=== PATIENT | female | born 2000 | race Two or more races ===

== ENCOUNTER 2025-07-14 17:52 | Emergency (ER) | payer MEDICAID, SELFPAY ==
[2025-07-14 17:53] VITALS: BMI 21.9
[2025-07-14 18:52] VITALS: BP 104/68; PULSE 114; RESP 20; TEMP 37.6; O2SAT 99
--- NOTE | 2025-07-14 19:05 | EDNOTE_ITS ---
Nausea/Vomit./Diarrhea-RME/HPI General Chief complaint: Nausea/Vomiting/Diarrhea Stated complaint: VOMITING x 2 DAYS AND + PREG Time Seen by Provider: 07/14/25 18:22 Arrival date/time: 07/14/25 17:52 25-year-old female 10 weeks gestation reports with complaints of persistent nausea and vomiting. Patient states she is unable to keep any foods down she has tried drinking sodas like lisa katie and eating crackers however she is unable to hold those things down. She denies any vaginal bleeding shortness of breath fevers chills diarrhea constipation blood or mucus in stools. Limitations: no limitations Related Data Home Medications ?Medication ?Instructions ?Recorded ?Confirmed vitamn-iron carb-folic cap PO 02/03/23 acid-docusate 95 mg-1 mg-50 mg capsule Previous Rx's ?Medication ?Instructions ?Recorded metoclopramide HCl 10 mg tablet 10 mg PO BID #20 tabs 07/14/25 (Reglan) Allergies Allergy/AdvReac Type Severity Reaction Status Date / Time No Known Allergies Allergy Verified 07/14/25 17:56 Review of Systems Constitutional Constitutional: Denies chills and Denies fever(s) ENT Ears, Nose, Mouth, and Throat: Denies dizziness, Denies otalgia and Denies sore throat Cardiovascular Cardiovascular: Denies chest pain, Denies dyspnea and Denies syncope Respiratory Respiratory: Denies cough and Denies dyspnea Gastrointestinal Gastrointestinal: Denies abdominal pain, Reports nausea and Reports vomiting Genitourinary Genitourinary: Denies abnormal vaginal bleeding, Denies difficulty voiding and Denies dysuria Musculoskeletal Musculoskeletal: Denies arthralgias and Denies back pain Integumentary/Breasts Skin/Breast: Denies erythema and Denies rash Neurologic Neurologic: Denies dizziness and Denies syncope Psychiatric Psychiatric: Denies anxiety and Denies depression Past Medical History Social History SMOKING STATUS: Never smoker ED Exam General Limitations: Present no limitations General appearance: Present alert and in no apparent distress Head Head exam: Present atraumatic Eye Eye exam: Present normal appearance, PERRL and EOMI ENT ENT exam: Present normal exam, normal oropharynx and mucous membranes moist Neck Neck exam: Present normal inspection, full ROM and trachea midline Chest Chest inspection: Present normal inspection and symmetric chest wall rise Respiratory Respiratory exam: Present normal lung sounds bilaterally Cardiovascular Cardiovascular exam: Present regular rate, normal rhythm and normal heart sounds Abdominal Exam Abdominal exam: Present soft and normal bowel sounds Extremities Exam Extremities exam: Present normal inspection and full ROM Back Exam Back exam: Present normal inspection and full ROM Neurological Exam Neurological exam: Present alert, oriented X3 and CN II-XII intact Psychiatric Psychiatric exam: Present normal affect and normal mood Skin Skin exam: Present warm, dry, intact and normal color Course Course Course Narrative: 25-year-old female 10 weeks gestation reports with complaints of nausea vomiting. Patient is given some Phenergan she is also given some medications to take home she is stable nontoxic-appearing with stable vital signs no vaginal bleeding no other symptoms she is advised follow-up with [employer] Quality Measures none Orders Category Date Time Status Promethazine Inj [Phenergan Inj] Med 07/14/25 19:04 Once 12.5 mg IM X1 ONE Vital Signs Vital signs: Vital Signs Temperature 99.6 F 07/14/25 18:52 Pulse Rate 114 H 07/14/25 18:52 Respiratory Rate 20 07/14/25 18:52 Blood Pressure 104/68 07/14/25 18:52 Pulse Oximetry (%) 99 07/14/25 18:52 Oxygen Delivery Method Room Air 07/14/25 18:52 Nausea/Vomiting/Diarrhea Patient data External records reviewed:: None Clinical information provided by:: patient Social determinants that could affect healthcare access:: none Patient has the following chronic illnesses:: none How is presenting disease/condition affected by chronic disease/condition?: no chronic disease Evaluation data The following diagnostics were reviewed and interpreted by me:: other (specify) (none) Lab and/or radiology exams considered but not ordered:: none Interpretation Summary: n/a Medications / Prescriptions Medications / Prescriptions considered but not ordered:: none Medication administrations:: Phenergan 12.5 mg IM Consultations Consultation(s) initiated? (list below): No Diagnosis Nausea Differential Diagnosis: food poisoning, gastroenteritis, dehydration and other (Vomiting in ) Most likely diagnosis given after review of the tests above:: Vomiting in Admission Indicated Admission indicated?: not indicated Admission Request Was there a request for admission?: No Disposition Plan Disposition Plan: Discharge Discharge Attestation Discharge Attestation: The patient and all family members were given an opportunity to ask questions and understood the discharge instructions. Discharge instructions specifically effects, indications for sooner follow up or return to the emergency department, and the expected course of current diagnosis. Patient condition: Stable Discharge Plan Plan Patient Disposition: HOME (Self Care) Prescriptions/Referrals Prescriptions/Med Rec: New metoclopramide HCl [Reglan] 10 mg tablet 10 mg PO BID Qty: 20 0RF No Action Prena-Cap 95-1-50 mg Capsule PO Problem List Clinical Impression: Excessive vomiting during Patient/Caregiver Discharge Instructions Discharge Activity: activity as tolerated Education Materials: ED Vomiting (Adult) Additional Instructions: Use medication as directed hydrate well follow with your [employer]Y DIRECTOR in 24 to 48 hours. Return to the emergency room if symptoms should worsen Print Language: Uzbek Stand Alone Forms: [employer] Award Info., Patient Portal Info Letter
[2025-07-14] MEDS: METOCLOPRAMIDE INJ 5 MG/ML VIAL 2 ML 10 MG IM (19:33)
== END 2025-07-14 20:55 | disposition home or self-care (01) ==
LOC: SERX 20:06
PROVIDERS: Emergency Provider Physician Assistant
DX: O21.9 Vomiting of pregnancy, unspecified (principal); Z3A.10 10 weeks gestation of pregnancy
CPT/HCPCS: 96372; 99282; J2765

== ENCOUNTER 2025-07-16 10:02 | Emergency (ER) | payer MEDICAID, SELFPAY ==
[2025-07-16 10:03] VITALS: BMI 29.4
[2025-07-16 10:12] VITALS: BP 123/81; PULSE 122; RESP 19; TEMP 37.6; O2SAT 97
--- NOTE | 2025-07-16 10:20 | EDNOTE_ITS ---
Nausea/Vomit./Diarrhea-RME/HPI General Chief complaint: Nausea/Vomiting/Diarrhea Stated complaint: N/V X4 DAYS; 10 WEEKS OB Time Seen by Provider: 07/16/25 10:20 Arrival date/time: 07/16/25 10:02 RME / HPI RME / HPI Narrative: See [facility] for Dr. Umanzor's HPI documentation. Related Data Home Medications ?Medication ?Instructions ?Recorded ?Confirmed vitamn-iron carb-folic cap PO 02/03/23 acid-docusate 95 mg-1 mg-50 mg capsule Previous Rx's ?Medication ?Instructions ?Recorded metoclopramide HCl 10 mg tablet 10 mg PO BID #20 tabs 07/14/25 (Reglan) cefdinir 300 mg capsule 300 mg PO BID #14 caps 07/16 ondansetron 4 mg disintegrating 4 mg PO TID PRN nausea and 07/16/25 tablet vomiting 30 days #30 tabs Allergies Allergy/AdvReac Type Severity Reaction Status Date / Time No Known Allergies Allergy Verified 07/16/25 10:06 Review of Systems Review of Systems Systems Reviewed: All systems reviewed, normal except as documented Past Medical History Social History SMOKING STATUS: Never smoker ED Exam Narrative Physical exam: See [facility] for Dr. Umanzor's physical exam documentation. Course Quality Measures none Orders Category Date Time Status Bedside COVID-19 Antigen Test NOW Care 07/16/25 10:26 Completed Saline [Insert IV] NOW Care 07/16/25 10:24 Completed Straight [In and Out Catheter] X1 Care 07/16/25 10:26 Completed US OB <= 14 weeks fetus Stat Exams 07/16/25 10:26 Completed US gall bladder Stat Exams 07/16/25 10:26 Completed ABG [Arterial Blood Gas] Stat Lab 07/16/25 10:37 Completed Amylase Stat Lab 07/16/25 11:03 Completed Beta HCG,Quantitative Stat Lab 07/16/25 11:03 Completed Beta Hydroxybutyrate Stat Lab 07/16/25 11:03 Completed Bilirubin,Direct Stat Lab 07/16/25 11:03 Completed CBC Stat Lab 07/16/25 11:03 Completed CMP [Comprehensive Metabolic Panel] Stat Lab 07/16/25 11:03 Completed Drug Screen,Urine Stat Lab 07/16/25 11:00 Completed Influenza A & B Rapid Panel Stat Lab 07/16/25 14:34 Completed Lipase Stat Lab 07/16/25 11:03 Completed Magnesium Stat Lab 07/16/25 11:03 Completed Rh Testing Only Stat Lab 07/16/25 11:03 Completed UA, C/S IF [Urinalysis, C/S if Indicated] Stat Lab 07/16/25 11:00 Completed Urine Culture Stat Lab 07/16/25 11:00 Received Ondansetron Inj [Zofran Inj] Med 07/16/25 10:24 Discontinued 4 mg IVP X1 ONE POTASSIUM CHL 10% Liq 15 ML Med 07/16/25 11:59 Discontinued 40 meq PO X1 ONE Ringers Lactated 1000 ml [Lactated Ringers] 1,000 ml Med 07/16/25 11:59 Discontinued IV 1,000 mls/hr Sodium Chloride 0.9% 1000 ml [Ns] 1,000 ml Med 07/16/25 10:24 Discontinued IV 999 mls/hr Vital Signs Vital signs: Vital Signs Temperature 99.7 F 07/16/25 10:12 Pulse Rate 122 H 07/16/25 10:12 Respiratory Rate 19 07/16/25 10:12 Blood Pressure 123/81 07/16/25 10:12 Pulse Oximetry (%) 97 07/16/25 10:12 Oxygen Delivery Method Room Air 07/16/25 10:12 Pulse ox is 97% on room air which is adequate. Nausea/Vomiting/Diarrhea MDM Narrative MDM Narrative:: This section includes all my notes and documentations, including HPI, PE, and ED course. Sea Umanzor MD HPI: 25-year-old ~10 week female here with several days of intractable vomiting and diarrhea. No vaginal spotting or bleeding. No other complaints. ROS: All negative except as documented in HPI. Physical Exam: General: Alert and oriented. Appearance of severe malaise noted. Eyes: Conjunctivae and lids clear. ENT: No nasal congestion. Neck: Supple. Heart: Tachycardic regular rhythm. Lungs: No respiratory distress. Good air movement. No rhonchi, wheezing, rales. Abdomen: Soft and nontender. Normal bowel sounds. No distension. No rebound or guarding. Back: No CVA tenderness. Skin: Warm and dry. Neuro: Alert and oriented X 3. I reviewed all diagnostic test results: My review of the gallbladder ultrasound report is: No acute findings. My review of the ultrasound report is 9 3/7-week IUP. Blood tests and urine tests remarkable for UTI. Covid/influenza is negative. At this point, diagnoses include: Hyperemesis gravidarum UTI Treatment here included: IV fluid Zofran 4 mg IV Oral KCl 40 meq Significant improvement noted. Recommended supportive care. Based on my best medical judgment, made decision no further evaluation or treatment indicated at this time. Patient understands and agrees to the discharge instructions customized and printed, see below. Discharge instructions from Dr. Umanzor: 1.? After evaluation, you have hyperemesis gravidarum and UTI (see attached handouts).? Your baby is doing well, measuring 9 weeks and 3 days. 2.? Take cefdinir to kill the germs causing the infection. 3.? For good hydration, increase oral fluid and maintain clear urine.? If dark or yellow, increase oral fluid. Zofran for nausea/vomiting.? 4. Clear liquid diet for 24 hours. Some good choices are water (but not only water because it will cause electrolyte abnormalities), sports drinks like Gatorade (with less sugar content), coconut water, chicken stock, and other fluid with electrolytes (like Pedialyte). 5.? See a private doctor on for recheck. Ask to check the final urine culture results from today to make sure cefdinir doesn't need to be changed due to resistance. And repeat potassium which was low today. Try to eat a banana daily. 6.? Seek immediate medical care with worsening, fever, or with any concerns. Sea Umanzor MD Patient data External records reviewed:: [facility] previous records Clinical information provided by:: patient Social determinants that could affect healthcare access:: none Patient has the following chronic illnesses:: None reported How is presenting disease/condition affected by chronic disease/condition?: no chronic disease Evaluation data The following diagnostics were reviewed and interpreted by me:: lab results and radiology exam(s) Lab and/or radiology exams considered but not ordered:: None Interpretation Summary: I reviewed all diagnostic test results: My review of the gallbladder ultrasound report is: No acute findings. My review of the ultrasound report is 9 3/7-week IUP. Blood tests and urine tests remarkable for UTI. Covid/influenza is negative. Medications / Prescriptions Medications / Prescriptions considered but not ordered:: None Medication administrations:: Medication Administration History Discontinued Medications Sodium Chloride (Ns) 1,000 mls @ 999 mls/hr IV .Q1H1M ONE Stop: 07/16/25 11:24 Last Infusion: 07/16/25 12:45 Dose: Infused Documented By: Admin: 07/16/25 11:09 Dose: 999 mls/hr Documented By: GM Lactated Ringer's (Lactated Ringers) 1,000 mls @ 1,000 mls/hr IV .Q1H ONE Stop: 07/16/25 12:58 Last Infusion: 07/16/25 14:38 Dose: Infused Documented By: Admin: 07/16/25 12:49 Dose: 1,000 mls/hr Documented By: Ondansetron HCl (Ondansetron Inj 2 Mg/Ml Inj 2 Ml) 4 mg IVP X1 ONE; Protocol Stop: 07/16/25 10:25 Last Admin: 07/16/25 11:07 Dose: 4 mg Documented By: Potassium Chloride (Potassium Chloride 10% 20 Meq/15 Ml Udc) 40 meq PO X1 ONE Stop: 07/16/25 12:00 Last Admin: 07/16/25 12:49 Dose: 40 meq Documented By: Treatment here included: IV fluid Zofran 4 mg IV Oral KCl 40 meq Consultations Consultation(s) initiated? (list below): No Diagnosis Nausea Differential Diagnosis: food poisoning, gastroenteritis, drug-induced nausea and vomiting, dehydration and other ( ) Most likely diagnosis given after review of the tests above:: Hyperemesis gravidarum UTI Admission Indicated Admission indicated?: not indicated Explain why admission is indicated or not indicated:: With significant improvement and no condition needing emergent intervention, there was no indication for admission. Admission Request Was there a request for admission?: No Disposition Plan Disposition Plan: Discharge Discharge Attestation Discharge Attestation: The patient and all family members were given an opportunity to ask questions and understood the discharge instructions. Discharge instructions specifically effects, indications for sooner follow up or return to the emergency department, and the expected course of current diagnosis. Patient condition: Stable Discharge Plan Plan Patient Disposition: HOME (Self Care) Prescriptions/Referrals Prescriptions/Med Rec: New ondansetron 4 mg tablet,disintegrating 4 mg PO TID PRN (Reason: nausea and vomiting) 30 Days Qty: 30 2RF cefdinir 300 mg capsule 300 mg PO BID Qty: 14 0RF No Action Prena-Cap 95-1-50 mg Capsule PO metoclopramide HCl [Reglan] 10 mg tablet 10 mg PO BID Qty: 20 0RF Referrals: Murtaza Newsome MD [Primary Care Provider, Family Practice] - In 1 week Problem List Clinical Impression: Hyperemesis gravidarum, UTI (urinary tract infection) Patient/Caregiver Discharge Instructions Discharge Activity: activity as tolerated Education Materials: ED Hyperemesis Gravidarum, ED CYSTITIS Female Adult Additional Instructions: Discharge instructions from Dr. Umanzor: 1.? After evaluation, you have hyperemesis gravidarum and UTI (see attached handouts).? Your baby is doing well, measuring 9 weeks and 3 days. 2.? Take cefdinir to kill the germs causing the infection. 3.? For good hydration, increase oral fluid and maintain clear urine.? If dark or yellow, increase oral fluid. Zofran for nausea/vomiting.? 4. Clear liquid diet for 24 hours. Some good choices are water (but not only water because it will cause electrolyte abnormalities), sports drinks like Gatorade (with less sugar content), coconut water, chicken stock, and other fluid with electrolytes (like Pedialyte). 5.? See a private doctor on for recheck. Ask to check the final urine culture results from today to make sure cefdinir doesn't need to be changed due to resistance. And repeat potassium which was low today. Try to eat a banana daily. 6.? Seek immediate medical care with worsening, fever, or with any concerns. Print Language: Croatian Stand Alone Forms: [employer] Award Info., Work/School Release, Patient Portal Info Letter
--- NOTE | 2025-07-16 10:26 | XR_ITS ---
Examination: Complete OB ultrasound, less than 14 weeks, transabdominal Date and time of exam: July 16, 2025, 1114 hours INDICATIONS: Nausea vomiting beginning 4 days ago Technique: Obstetrical ultrasound images less than 14 weeks performed via transabdominal imaging Findings: A normal shaped single intrauterine gestation is present in the uterus. CRL 2.7 cm corresponds to 9 weeks 3 days gestational age Cardiac motion 180 bpm Right ovary 3.7 cm arterial flow Left ovary 2.8 cm arterial flow Ultrasonographic survey of visible and placental structures unremarkable. Amniotic fluid volume appears appropriate for this estimated gestational age. Impression: Viable intrauterine gestation 9 weeks 3 days.
--- NOTE | 2025-07-16 10:26 | XR_ITS ---
Examination: Abdomen sonogram, Limited Date and time of exam: July 16, 2025, 1131 hours INDICATIONS: Nausea vomiting beginning 10 days ago Technique: Real-time sheppard scale transabdominal sonographic images of the upper abdomen obtained. Findings: Normal gallbladder Normal common bile duct 0.4 cm Pancreatic head 2.4 cm Liver 16.1 cm no liver lesions Normal hepatopetal portal venous flow Patent IVC IMPRESSION: Normal gallbladder Normal common bile duct
[2025-07-16 10:44] LABS: Base Excess 2 (-3-3); HCO3 25 mEq/L (20-26); Inspired Oxygen, FIO2 21 %; O2 Saturation 99 % (91-98); PCO2 32 mmHg (32.0-48.0); PO2 94 mmHg (83-108); pH, Arterial 7.50 (7.35-7.45)
[2025-07-16 10:48] LABS: Allen Test Performed/OK; Puncture Site Right Radial
[2025-07-16] MEDS: ONDANSETRON INJ 2 MG/ML INJ 2 ML 4 MG IVP (11:07)
[2025-07-16] MEDS: SODIUM CHLORIDE 0.9% 1000 ML 1,000 ML 999 ML IV (11:09)
[2025-07-16 11:15] LABS: Collection Type, Urine Clean Catch
[2025-07-16 11:18] LABS: Basophils # (Auto) 0.0 Thou/mm3 (0.0-0.2); Basophils % (Auto) 0 % (0-2.5); Eosinophils # (Auto) 0.0 Thou/mm3 (0.0-0.5); Eosinophils % (Auto) 0 % (0-10); Hematocrit 36.0 % (36.0-46.0); Hemoglobin 12.6 g/dL (12.0-16.0); Immature Granulocytes Auto 0.07 Thou/mm3 (0.00-0.00); Lymphocytes # (Auto) 1.2 Thou/mm3 (1.0-4.8); Lymphocytes % (Auto) 6 % (10-50); Mean Corpuscular HGB Conc 35.0 g/dl (31.0-37.0); Mean Corpuscular Hemoglobin 29.0 pg (25.0-35.0); Mean Corpuscular Volume 83 fL (80-100); Monocytes # (Auto) 1.8 Thou/mm3 (0.0-0.8); Monocytes % (Auto) 10 % (0-12); Neutrophils # (Auto) 15.6 Thou/mm3 (1.8-7.7); Neutrophils % (Auto) 83 % (37-80); Nucleated Red Blood Cell # 0.00 Thou/mm3 (0.00-0.00); Nucleated Red Blood Cell % 0 /100 WBC (0); Platelet Count 207 Thou/mm3 (140-440); RDW Standard Deviation 38.8 fL (36.4-46.3); Red Blood Count 4.35 Miln/mm3 (4.00-5.20); White Blood Count 18.8 Thou/mm3 (3.6-11.0)
[2025-07-16 11:19] LABS: Beta Hydroxybutyrate 0.4 mmol/L (<0.6)
[2025-07-16 11:30] LABS: Amphetamine/Methamp Scrn,U Negative (Negative); Barbiturate Screen,Urine Negative (Negative); Benzodiazepines Screen,Urine Negative (Negative); Benzoylecgonine Screen, Ur Negative (Negative); Fentanyl Screen,Urine Negative (Negative); Opiate Screen,Urine Negative (Negative); THC Screen,Urine Negative (Negative)
[2025-07-16 11:40] LABS: Alanine Aminotransferase 12 U/L (10-49); Albumin, Serum 4.5 gm/dL (3.5-5.0); Albumin/Globulin Ratio 1.9 (1.2-2.2); Alkaline Phosphatase 74 U/L (46-116); Amylase 92 U/L (30-118); Anion Gap 13 (7-16); Aspartate Amino Transferase 18 U/L (0-34); BUN/Creatinine Ratio 11 Ratio (12-20); Bilirubin,Direct 0.1 mg/dL (0.0-0.3); Bilirubin,Total 0.4 mg/dL (0.3-1.2); Blood Urea Nitrogen 8 mg/dL (9-23); Calcium 9.0 mg/dL (8.3-10.6); Calcium (Corrected) 9.0 mg/dL (8.5-10.1); Carbon Dioxide 23.0 mMol/L (20.0-31.0); Chloride 97 mMol/L (98-107); Creatinine (Component) 0.7 mg/dL (0.6-1.3); Estimated Creatinine Clearance 139.0 mL/min (>60); Globulin 2.4 gm/dL (2.3-3.5); Glucose 121 mg/dL (74-106); Lipase 50 U/L (12-53); Magnesium 2.0 mg/dL (1.6-2.6); Osmolality,Calculated 265 (275-295); Potassium 3.1 mMol/L (3.4-5.1); Sodium 133 mMol/L (136-145); Total Protein 6.9 gm/dL (5.7-8.2); eGFR > 60 See Note
[2025-07-16 11:52] LABS: Bacteria,Urine 1+; Bilirubin,Urine Negative (Negative); Blood,Urine Trace (Negative); Clarity,Urine Turbid (Clear/Hazy); Color,Urine Yellow (Lt Yel-Yel); Glucose, Urine Negative (Negative); Ketones,Urine 4+ (Negative); Leukocyte Esterase,Urine Positive (Negative); Nitrite,Urine Negative (Negative); PH,Urine 6.0 (5.0-7.0); Protein,Urine 1+ (Neg - Trace); RBC,Urine 12 /hpf (0-3); Specific Gravity,Urine 1.024 (1.001-1.035); Squamous Epithelial Cell,Urine 3 /hpf (0-5); Urobilinogen,Urine 2.0 mg/dL (0.0-1.0); WBC,Urine 45 /hpf (0-5)
[2025-07-16 12:15] LABS: Culture Indicated,Urine Yes
[2025-07-16] MEDS: POTASSIUM CHLORIDE 10% 20 MEQ/15 ML UDC 40 MEQ PO (12:49)
[2025-07-16] MEDS: RINGERS LACTATED 1000 ML 1,000 ML IV (12:49)
[2025-07-16 15:15] LABS: Influenza A Ag Negative; Influenza B Ag Negative
[2025-07-16 15:23] VITALS: BP 118/72; PULSE 94; RESP 17; TEMP 36.8; O2SAT 98
== END 2025-07-16 15:25 | disposition home or self-care (01) ==
PROVIDERS: Emergency Provider Emergency Medicine; PCP Family Medicine
DX: O21.0 Mild hyperemesis gravidarum (principal); O23.41 Unspecified infection of urinary tract in pregnancy, first trimester; Z3A.10 10 weeks gestation of pregnancy; O99.891 Other specified diseases and conditions complicating pregnancy
CPT/HCPCS: 36415; 36600; 76705; 76801; 80053; 80307; 81001; 82010; 82150; 82248; 82803; 83690; 83735; 84702; 85025; 86901; 87077; 87086; 87186; 87502; 87811; 96361; 96374; 99283; J2405; J7030; J7120; A9270

== ENCOUNTER 2025-08-18 14:01 | Outpatient (AMB) | payer MEDICAID, SELFPAY ==
[2025-08-18 14:18] VITALS: BP 113/74; PULSE 92; RESP 18; TEMP 36.5; O2SAT 98; BMI 29.0
--- NOTE | 2025-08-18 14:18 | AMB.OBINITIA ---
Vital Signs 08/18/25 14:18 Height 1.7 m Height Method Stated Weight 84.085 kg Weight Measurement Method Standing Scale BMI 29.0 BP 113/74 Blood Pressure Source Automatic Cuff Blood Pressure Location Right Upper Arm Position Sitting Respiration 18 Pulse 92 Pulse Source Monitor Temp 97.7 F Temp Source Temporal Artery Scan Pulse Oximetry (%) 98 Oxygen Delivery Method Room Air Allergies/Home Meds Allergies & Medications Allergies No Known Allergies Allergy (Verified 08/18/25 14:19) Medication Reconciliation triamcinolone acetonide 0.1 % topical ointment 1 applic topical QDAY #30 grams 08/18/25 [Rx] Intake Visit Data Collection New Patient or Established: Established Patient (seen at [facility] within 3 years) Reason for Visit:: OBI Seen by Clinical Staff ONLY (RN/MA): No Assistant Customer Service Manager Required: No Do You Feel Safe at Home: Yes Authorities Contacted: N/A PCP or OBGYN visit in last 3 months: No Hx Now: Yes Are you currently on any form of Control: No Last menstrual period: 05/05/25 Pain Present Currently: No Pain Scale Used: Schumacher-Kyle/Numerical Pain scale:: 0 Smoking Status Smoking Status: Never smoker Immunizations Flu Vaccine in the Last 12 Months: No Flu Vaccine Exclusion Criteria: No Exclusion Criteria Questionnaires Covid-19 Vaccine Questionnaire Has patient been vacinated for Covid-19 Have you been vacinated for Covid-19: No PHQ-9 PHQ-2 Over the last 2 weeks, how often have you been bothered by any of the following problems? 1. Little interest or pleasure in doing things: not at all 2. Feeling down, depressed, or hopeless: not at all Total score: 0 PHQ-9 3. Trouble falling or staying asleep, or sleeping too much: Not at all 4. Feeling tired or having little energy: Not at all 5. Poor appetite or overeating: Not at all 6. Feeling bad about yourself - or that you are a failure or have let yourself or your family down: Not at all 7. Trouble concentrating on things, such as reading the newspaper or watching television: Not at all 8. Moving or speaking so slowly that other people could have noticed? - Or the opposite - being so fidgety or restless that you have been moving around a lot more than usual: not at all 9. Thoughts that you would be better off or of hurting yourself in some way: Not at all Total score: 0 Source: Developed by Drs. Gary Alvarez, Anastacia Lopez, Zackary Caicedo and colleagues, with an educational celia from [employer]. Social History Living Situation History Marital Status: Lives With: Family Housing: House Tobacco History Smoking Status: Never smoker Second Hand Smoke Exposure: No Alcohol History Alcohol Intake: Never Domestic Abuse History Do You Feel Safe at Home: Yes History of Present Illness HPI Narrative 25-year-old patient 3 para 1 for OBI today.. Patient was first seen at [facility] for her initial OB and then transferred to [facility] OB clinic. Last period May 05, 2025. This gives EDC February 09, 2026. Patient reports her dates. She had an ultrasound July 16, 2025 at [facility] and measured 9 weeks 3 days. This confirm dates. Denies social habits. Denies surgery. Denies chronic illness. Patient does have a history of eczema that she has had since she was about 11 years old. She reports that it is worsening and spreading to her legs and her head. She uses [id number] meds for that denies leaking, bleeding, cramping reports light movement. She had a spontaneous at 38 weeks uncomplicated. The baby weighed 6 pounds 7 OB Initial Visit OB Flowsheet OB Flowsheet Initial Weight: Not Recorded Date <del>?</del> EGA Weight BP Alb Glu CTX Pres Fundal ht FHR Mov Dilation Station Effacement Hx Notes Visit Note 08/18/25 <del>?</del> 15w 0d 84.085 kg 113/74 absent unknown 15 145 active 25-year-old 3 para 1 for OBI. Patient had her initial appointment at [facility]. Her last. Is May 02, [id number]. And this gave an EDC of February 09, 2026. Unsure dates. Denies leaking, bleeding, cramping. Reports light movement. History of eczema that started on her hands and also now has spread to her legs and feet. She has some patches on her forehead. Schedule patient with [facility] for anatomy scan. I also submitted a dermatology referral because of the eczema. Advised patient to use the Aveeno eczema therapy twice a day. She can put also triamcinolone 1% at the same time to help. Discussed SAB precautions. OB panel with NIPT and carrier screen today. Then we will do AFP at next appointment. Discussed SAB precautions Menstrual History Menstrual reliability: definite Flow: normal Menstrual regularity: regular Monthly: Yes On control pills at conception: No OB History : 3 Para: 1 # of Living Children: 1 Infection History & Risk Evaluation History of STDs: none Patient or partner has history of Genital Herpes: No Genetic Screening & History Genetic Screening/Teratology Counseling - Includes patient, baby's father, or anyone in either family with: 1. Patient's age 35 years or older as of estimated date of delivery: No 2. Thalassemia (Mosotho, Peruvian, Mediterranean, or Background); MCV less than 80: No 3. Neural Tube Defect (Meningomyelocele, Spina Bifida, or Anencephaly): No 4. Congenital Heart Defect: No 5. Down Syndrome: No 6. Norberto-Sachs (Ashkenazi Sabianist, Cajun, Korean Sierra Leonean): No 7. Lizbeth Disease (Ashkenazi Sabianist): No 8. Familial Dysautonomia (Ashkenazi Sabianist): No 9. Sickle Cell Disease or Trait (): No 10. Hemophilia or other blood disorders: No 11. Muscular Dystrophy: No 12. Cystic Fibrosis: No 13. Harwick's Chorea: No 14. Mental Retardation/Autism: No 15. Other inherited genetic or chromosomal disorder: No 16. Maternal Metabolic Disorder (EG,TYPE 1 Diabetes, PKU): No 17. Patient or baby's father had a child with defects not listed above: No 18. Recurrent loss or a stillbirth: No 19. Medications (including supplements, vitamins, herbs or otc drugs)/illicit/recreational drugs/alcohol since last menstrual period: No 20. Any other: No Infection History Other (see comments) Source: [employer] Review of Systems Review of Systems Systems Reviewed: All systems reviewed, normal except as documented Exam General Limitations: no limitations General Appearance: alert, in no apparent distress, comfortable, cooperative, healthy appearing, well developed and well groomed Head Head exam: atraumatic, normocephalic and normal inspection ENT ENT exam: Present normal exam, normal oropharynx and mucous membranes moist Neck Neck exam: Present normal inspection, full ROM and trachea midline Resp Respiratory exam: Present normal lung sounds bilaterally Card Cardiovascular exam: Present regular rate, normal rhythm and normal heart sounds Psych Psychiatric exam: Present normal affect and normal mood Office Procedures OBC Clinic LOC & Office Proc's Nursing/Assessment Patient Status: Established Patient OB Clinic Nursing Assessment: Medication Reconciliation, Update PMH in EMR and Vital Signs OB Clinic Coordination of Care: Complex Care and Chronic Disease 1-5, Education Complex Pt/Fam, Consent,records obtained, informed consent, Results/Orders obtained and Staff clarify orders Special Needs: Heart tones Established Patient Charge Established Patient Point Assignment: 125 Established Patient Point Charge: EP Level 4 (120-155) Assessment & Plan Diagnosis / Problem List (1) Encounter for supervision of high risk in second trimester, antepartum: Status: Acute Plan OBI today. Schedule appointment with [facility] for anatomy scan. No scheduled Derm appointment. Comfort measures for eczema. I gave her triamcinolone 1% to apply with [facility] eczema care. Discussed SAB precautions continue prenatals. We did a OB panel today with hemoglobin A1c, NIPT and carrier screens Additional Plan Follow Up: 4 Weeks (obc) 4 Weeks
== END 2025-08-18 14:35 | disposition home or self-care (01) ==
LOC: HODSOBC 14:01
PROVIDERS: PCP Family Medicine; Referring Provider Family Medicine; Supervising Provider Advanced Practice Midwife; Visit Provider Advanced Practice Midwife
DX: O09.892 Supervision of other high risk pregnancies, second trimester (principal); O99.891 Other specified diseases and conditions complicating pregnancy; L30.9 Dermatitis, unspecified; Z3A.15 15 weeks gestation of pregnancy
CPT/HCPCS: 99214; G0463